=== PATIENT | male | born 1965 | race Caucasian/White ===

== ENCOUNTER 2017-01-19 02:27 | Emergency (ER) | payer BC ==
[2017-01-19] MEDS ORDERED: HYDROcodone/Acetaminophen 10/325 mg Tablet ONE (03:02)
== END 2017-01-19 03:08 | disposition home or self-care (01) ==
LOC: ERS 02:27
DX: K02.9 Dental caries, unspecified (principal); F17.210 Nicotine dependence, cigarettes, uncomplicated; Z79.899 Other long term (current) drug therapy
CPT/HCPCS: 99282

== ENCOUNTER 2017-05-18 01:33 | Emergency (ER) | payer BC | END 2017-05-18 02:40 | disposition left against medical advice (07) | LOC: ERS 01:33 | DX: Z53.21 Procedure and treatment not carried out due to patient leaving prior to being seen by health care provider (principal) | CPT/HCPCS: 93005 ==

== ENCOUNTER 2018-05-09 15:42 | Inpatient (IN) | payer BC, OTHER ==
[2018-05-09 16:26] LABS: #Lymphocytes 1.3 thou/uL (1.20-3.40); #Monocytes 0.9 thou/uL (0.11-0.59); #Neutrophils 11.1 thou/uL (1.40-6.50); %Basophils 0.2 % (0.0-1.0); %Eosinophils 0.2 % (0.0-10.0); %Lymphocytes 9.5 % (21.0-51.0); %Monocytes 6.5 % (0.0-10.0); %Neutrophils 83.7 % (42.0-75.0); Hemoglobin 14.6 g/dL (14.0-18.0); Mean Corpuscular HGB CONC 33.9 g/dL (32.0-36.0); Mean Corpuscular Hemoglobin 30.2 pg (27.0-31.0); Mean Corpuscular Volume 89.2 fL (78.0-98.0); Mean Platelet Volume 7.4 fL (7.4-10.4); Platelet Count 209 thou/uL (130-400); RBC Distribution Width 11.6 % (11.5-14.5); Red Blood Cell (RBC) Count 4.83 mill/uL (4.70-6.10); White Blood Cell (WBC) Count 13.3 thou/uL (4.8-10.8)
--- NOTE | 2018-05-09 16:42 | RAD ---
CHEST ONE VIEW 05/09/18 HISTORY: Fever and right upper quadrant pain. FINDINGS: Heart size is normal. The lungs are clear. No pneumonia, edema, pleural effusion or other acute proc ess. IMPRESSION: No acute intrathoracic disease. No evidence for pneumonia. POS: [facility]
[2018-05-09 16:48] LABS: ALT (SGPT) 18 U/L (8-55); AST (SGOT) 13 U/L (5-34); Alkaline Phosphatase 46 U/L (40-150); Anion Gap 13 mmol/L (10-20); BUN (Urea Nitrogen) 11 mg/dL (8.4-25.7); Bilirubin, Total 1.7 mg/dL (0.2-1.2); Calc. Creatinine Clearance 0 mL/min (70-130); Calcium 9.2 mg/dL (7.8-10.44); Carbon Dioxide 22 mmol/L (22-29); Chloride 103 mmol/L (98-107); Estimated GFR-MDRD 64; Globulin 2.9 g/dL (2.4-3.5); Glucose 137 mg/dL (70-105); Lipase 18 U/L (8-78); Potassium 3.6 mmol/L (3.5-5.1); Protein, Total 6.9 g/dL (6.0-8.3); Sodium 134 mmol/L (136-145)
--- NOTE | 2018-05-09 17:30 | ULT ---
GALLBLADDER ULTRASOUND: 05/09/18 HISTORY: Abdominal pain. Coarse increased liver echogenicity, evidence for fatty change. Evidence for sludge within the gallbl adder although the patient was not n.p.o. No evidence for gallstones or overt gallbladder wall thicke andrea or pericholecystic fluid. Common bile duct is not dilated. Visualized pancreas and right kidney are unremarkable. IMPRESSION: Coarse liver echogenicity. Sludge within the gallbladder without overt gallstones. If there is clinic al concern for acute cholecystitis, followup nuclear medicine hepatobiliary scan might give additiona l information. POS: [facility]
[2018-05-09 17:51] LABS: Bilirubin Negative (Negative); Blood, Urine Negative (Negative); Clarity CLEAR (Clear); Glucose, Urine (Dipstick) Negative (Negative); Leukocyte Negative (Negative); Nitrite Negative (Negative); Protein, Urine (Dipstick) Negative (Neg-Trace)
[2018-05-09] MEDS ORDERED: Ondansetron PF 4 MG/2 ML Vial ONE (19:45)
[2018-05-09] MEDS ORDERED: Morphine 4 MG/ML VIAL ONE (19:46)
--- NOTE | 2018-05-09 20:45 | PDOC.FPRHP ---
- History of Present Illness Chief Complaint: Abdominal pain History of Present Illness: 52yo M with no pmh presents as transfer from outside ED with 2 day hx of worsening abdominal pain in epigastric region with radiation to RUQ. Pain is of pressure like quality and rated 10/10. Pain was alleviated by toradol at outside ER but otherwise has no transforming factors including meal times. Related sympotms of SOB when pain is at its worse. Of note pt reports he had a similar episode of pain 1 year ago and was dx with gastric ulcer though he never had an EGD. ED Course: toradol, IVF, Tylenol, Zofran, morphine - Allergies/Adverse Reactions Allergies Allergy/AdvReac Type Severity Reaction Status Date / Time No Known Allergies Allergy Verified 04/02/16 19:39 - Home Medications Medication Instructions Recorded Confirmed Type Tamsulosin HCl [Flomax] 0.4 mg PO HS 03/29/16 05/09/18 History - History PMHx: Denies PSHx: bilateral shoulder, L5 laminectomy FHx: Father had hx of prostate cancer (pt states this is why he takes flomax) Social: snuff (1 can/week), etoh 6 beers/day, denies drugs - Review of Systems General: reports: fever/chills. denies: fatigue Eyes: denies: eye pain, vision changes ENT: denies: nasal congestion, rhinorrhea Respiratory: reports: shortness of breath. denies: cough Cardiovascular: denies: chest pain, palpitation, edema, orthopnea Gastrointestinal: reports: abdominal pain. denies: nausea, vomiting Genitourinary: denies: dysuria, polyuria Skin: denies: rashes, lesions Musculoskeletal: denies: pain, tenderness Neurological: denies: numbness, syncope, seizure Psychological: denies: anxiety, depression - Vital signs BP: [119/79] HR: [86] RR: [23] Tmax: [100.7] Pox: [97]% on [ra] Wt: [88kg] - Physical Exam Constitutional: awake, alert and oriented, well developed HEENT: normocephalic and atraumatic, EOMI, grossly normal vision, grossly normal hearing Neck: supple, trachea midline Chest: no-tender to palpation Heart: RRR, normal S1/S2 Lungs: CTAB, no respiratory distress Abdomen: soft, bowel sounds present -Abdomen: + antoine sign Musculoskeletal: normal structure, normal tone Neurological: no focal deficit, normal sensation Skin: no rash/lesions, good turgor Heme/Lymphatic: no purpura, no petechia Psychiatric: normal mood and affect, good judgment and insight FMR H&P: Results - Labs Result Diagrams: 05/10/18 06:51 05/10/18 06:51 Lab results: WBC 13.3 thou/uL (4.8-10.8) H 05/09/18 16:10 Hgb 14.6 g/dL (14.0-18.0) 05/09/18 16:10 Hct 43.1 % (42.0-52.0) 05/09/18 16:10 MCV 89.2 fL (78.0-98.0) 05/09/18 16:10 Plt Count 209 thou/uL (130-400) 05/09/18 16:10 Neutrophils % 83.7 % (42.0-75.0) H 05/09/18 16:10 Sodium 134 mmol/L (136-145) L 05/09/18 16:10 Potassium 3.6 mmol/L (3.5-5.1) 05/09/18 16:10 Chloride 103 mmol/L (98-107) 05/09/18 16:10 Carbon Dioxide 22 mmol/L (22-29) 05/09/18 16:10 BUN 11 mg/dL (8.4-25.7) 05/09/18 16:10 Creatinine 1.19 mg/dL (0.7-1.3) 05/09/18 16:10 Glucose 137 mg/dL (70-105) H 05/09/18 16:10 Lactic Acid 1.3 mmol/L (0.5-2.2) 05/09/18 16:10 Calcium 9.2 mg/dL (7.8-10.44) 05/09/18 16:10 Total Bilirubin 1.7 mg/dL (0.2-1.2) H 05/09/18 16:10 AST 13 U/L (5-34) 05/09/18 16:10 ALT 18 U/L (8-55) 05/09/18 16:10 Alkaline Phosphatase 46 U/L (40-150) 05/09/18 16:10 Serum Total Protein 6.9 g/dL (6.0-8.3) 05/09/18 16:10 Albumin 4.0 g/dL (3.5-5.0) 05/09/18 16:10 Lipase 18 U/L (8-78) 05/09/18 16:10 Urine Ketones Negative mg/dL (Negative) 05/09/18 17:29 Urine Blood Negative (Negative) 05/09/18 17:29 Urine Nitrite Negative (Negative) 05/09/18 17:29 Ur Leukocyte Esterase Negative (Negative) 05/09/18 17:29 FMR H&P: A/P - Plan Sepsis 2/2 possible acalculous cholecystitis A- Pt presents with fever, tachycardia, tachypnea, mild leukocytosis, and positive Antoine's sign. RUQ US showed GB sludge but no CBD dilation, wall thickening or gallstones noted. P- admit medical floor - BCx - start Zosyn - IVF and pain control - HIDA scan, consider surg consult pending results EtOH missuse disorder A- Pt admits to 6 pack beer/day and admits to plans for continued drinking on admission. No signs or symptoms of EtOH withdrawal at this time. P- Beer with meals. - ASE protocol - pt counselled on recommended Etoh intake limits FULL code PPx: Lovenox for VTE disposition: Admit to inpatient medical, expect at least 2 midnights FMR H&P: Upper Level - Pertinent history 52 yo CM with PMH EtOH abuse presenting with worsening abdominal pain, fever, and difficulty tolerating PO. Pt was seen at an outside urgent care and there was concern for cholecystitis so pt was sent to ER for further evaluation. Pt notes some improvement with toradol from urgent care. Pt states this type of pain occurred about a year ago and resolved on its own. - Pertinent findings Gen: pleasant in NAD CV: RRR Resp: unlabored, CTAB Abd: +BS, significant TTP RUQ, positive Antoine's, no distention/fluid wave/ rigidity - Plan Date/Time: 05/09/182044 I, Trevor Molina MD PGY3, have evaluated this patient and agree with findings/ plan as outlined by underwriting intern resident. Pertinent changes/additions are listed here. 1. Sepsis 2/2 possible acalculous cholecystitis -Pt presents with fever, tachycardia, tachypnea, mild leukocytosis, and positive Antoine's sign. RUQ US showed GB sludge but no CBD dilation, wall thickening or gallstones noted. -Will plan to admit to medical floor with continued IVF and pain control. Keep NPO. -Obtain blood cultures and start pt on Zosyn for cholecystitis coverage. -Plan on HIDA scan in AM with possible general surgery consult pending results. 2. EtOH Abuse -Pt admits to 6 pack beer/day. No signs or symptoms of EtOH withdrawal at this time but will place on ASE protocol and monitor closely. -Beer with meals. See underwriting intern H&P for complete medical history. FULL code PPx: Lovenox for VTE, no GI indicated. disposition: Admit to inpatient medical for anticipated length of stay greater than two midnights, pending clinical course. Addendum - Attending - Attending Attestation Date/Time: 05/09/18 9738 I personally evaluated the patient and discussed the management with Dr. Uribe. I agree with the History, Examination, Assessment and Plan documented above with any addition or exceptions noted below. Patient presents with epigastric and ruq abdominal pain for 2 days. U/s showed gallbladder sludge. will give iv fluids, IV zosyn. Hida scan tomorrow.
[2018-05-09] MEDS ORDERED: Morphine 4 MG/ML VIAL SLOW IVP PRN ×2 (21:17→21:21)
[2018-05-09] MEDS ORDERED: Ondansetron ODT 4 MG TAB SL PRN (21:17)
[2018-05-09] MEDS ORDERED: Sodium Chloride 0.9% 1,000 ML IV SCH (21:17)
[2018-05-09] MEDS ORDERED: Ondansetron PF 4 MG/2 ML Vial IVP PRN ×2 (21:17→21:21)
[2018-05-09] MEDS ORDERED: Acetaminophen 325 MG TAB PO PRN (21:21)
[2018-05-09] MEDS ORDERED: HYDROcodone/Acetaminophen 5/325 mg Tablet PO PRN (21:21)
[2018-05-09] MEDS ORDERED: Ondansetron ODT 4 MG TAB PO PRN (21:21)
[2018-05-09] MEDS ORDERED: Famotidine 20 MG TAB PO SCH (21:30)
[2018-05-09] MEDS: Ketorolac Tromethamine 30 MG/ML VIAL IVP PRN (22:36)
[2018-05-09] MEDS: Lactated Ringer's 1,000 ML IV SCH (22:41)
[2018-05-09] MEDS: Piperacillin/Tazobactam 3.375 GM in Sodium Chloride 0.9% 100 ML IVPB SCH (23:58)
[2018-05-10] MEDS: Lactated Ringer's 1,000 ML IV SCH ×3 (05:47→21:11)
[2018-05-10] MEDS: Piperacillin/Tazobactam 3.375 GM in Sodium Chloride 0.9% 100 ML IVPB SCH ×3 (05:47→17:26)
--- NOTE | 2018-05-10 06:46 | PDOC.FM ---
- Subjective Subjective: Mr. Sawyer says his RUQ pain has continued. Currently NPO. Denies nausea/ vomiting. Awaiting HIDA today. - Objective MAR Reviewed: Yes Vital Signs & Weight: Vital Signs (12 hours) Temp Pulse Resp BP BP BP Pulse Ox 05/10/18 04:00 99.9 F H 93 16 107/69 107/69 93 L 05/10/18 00:00 98.5 F 90 18 107/61 107/61 91 L 05/09/18 21:45 93 L 05/09/18 21:05 98.1 F 90 22 H 130/86 130/86 93 L Result Diagrams: 05/10/18 06:51 05/10/18 06:51 Phys Exam - Physical Examination Constitutional: NAD HEENT: sclera anicteric Respiratory: no rhonchi, clear to auscultation bilateral Cardiovascular: RRR, no significant murmur Gastrointestinal: soft, positive bowel sounds (RUQ TTP) Musculoskeletal: no edema Neurological: non-focal Psychiatric: normal affect Skin: normal turgor Dx/Plan (1) Sepsis Code(s): A41.9 - SEPSIS, UNSPECIFIED ORGANISM Status: Acute (2) Acalculous cholecystitis Code(s): K81.9 - CHOLECYSTITIS, UNSPECIFIED Status: Acute (3) Alcohol abuse Code(s): F10.10 - ALCOHOL ABUSE, UNCOMPLICATED Status: Acute (4) Hyperbilirubinemia Code(s): E80.6 - OTHER DISORDERS OF BILIRUBIN METABOLISM Status: Acute - Plan Plan: Sepsis 2/2 possible acalculous cholecystitis - Pt presents with fever, tachycardia, tachypnea, mild leukocytosis, and positive Antoine's sign. RUQ US showed GB sludge but no CBD dilation, wall thickening or gallstones noted. - BCx pending - continue Zosyn (05/09) - IVF and pain control - toradol, norco prn. - HIDA scan pending, consider surg consult pending results - T bili elevated 05/04 on admission, continue to trend with CMP Leukocytosis - improving, trend with CBC Hx of gastric ulcer - start protonix - continue toradol for now with caution EtOH missuse disorder A- Pt admits to 6 pack beer/day and admits to plans for continued drinking on admission. Will not give beer because of pt's symptoms. - ASE protocol - pt counselled on recommended Etoh intake limits FULL code PPx: Lovenox for VTE disposition: pending HIDA scan Addendum - Attending - Attending Attestation Date/Time: 05/10/18 3175 I personally evaluated the patient and discussed the management with Dr. Garcia. I agree with the History, Examination, Assessment and Plan documented above with any addition or exceptions noted below. Patient with continued ruq pain on palpation. Tbili still elevated but down- trending. Will get hida scan today. If positive, will consult surgery. If negative, will ask GI for evaluation as he has a reported history of gastric ulcer.
[2018-05-10 07:03] LABS: #Eosinphils 0.1 thou/uL (0.0-0.7); #Lymphocytes 1.6 thou/uL (1.20-3.40); #Neutrophils 8.9 thou/uL (1.40-6.50); %Basophils 0.2 % (0.0-1.0); %Eosinophils 0.6 % (0.0-10.0); %Lymphocytes 13.6 % (21.0-51.0); %Monocytes 8.4 % (0.0-10.0); %Neutrophils 77.2 % (42.0-75.0); Hemoglobin 12.3 g/dL (14.0-18.0); Mean Corpuscular HGB CONC 34.7 g/dL (32.0-36.0); Mean Corpuscular Hemoglobin 31.6 pg (27.0-31.0); Mean Corpuscular Volume 91.1 fL (78.0-98.0); Mean Platelet Volume 7.3 fL (7.4-10.4); Platelet Count 171 thou/uL (130-400); RBC Distribution Width 11.7 % (11.5-14.5); Red Blood Cell (RBC) Count 3.89 mill/uL (4.70-6.10); White Blood Cell (WBC) Count 11.5 thou/uL (4.8-10.8)
[2018-05-10 07:22] LABS: Anion Gap 10 mmol/L (10-20); BUN (Urea Nitrogen) 12 mg/dL (8.4-25.7); Calc. Creatinine Clearance 0 mL/min (70-130); Calcium 8.1 mg/dL (7.8-10.44); Carbon Dioxide 20 mmol/L (22-29); Chloride 108 mmol/L (98-107); Estimated GFR-MDRD 76; Glucose 84 mg/dL (70-105); Potassium 4.2 mmol/L (3.5-5.1); Sodium 134 mmol/L (136-145)
[2018-05-10 07:33] VITALS: BMI 32.4
[2018-05-10] MEDS ORDERED: BEER 1 CAN PO SCH (08:00)
[2018-05-10] MEDS: Enoxaparin Sodium 40 MG/0.4 ML SYRINGE SC SCH (08:09)
[2018-05-10] MEDS: Ketorolac Tromethamine 30 MG/ML VIAL IVP PRN ×2 (08:42→16:12)
[2018-05-10] MEDS ORDERED: Famotidine 20 MG TAB PO SCH (09:00)
[2018-05-10 10:07] LABS: Bilirubin, Total 1.4 mg/dL (0.2-1.2)
[2018-05-10] MEDS: Pantoprazole 40 MG VIAL IVP SCH (10:26)
[2018-05-10] MEDS ORDERED: Morphine 2 MG/ML SYRINGE SLOW IVP SCH (15:00)
[2018-05-10] MEDS ORDERED: Acetaminophen 1,000 MG in Premix Bag 1 BAG IVPB PRN (17:22)
--- NOTE | 2018-05-10 17:34 | NM ---
HEPOBILIARY SCAN: Date: 05-10-18 History: 52-year-old male with abnormal gallbladder ultrasound on 05-09-18 demonstrating gallbladder s ludge in a positive Antoine's sign. Technique: Patient was given 8 oz. of Ensure orally 4 hours prior to imaging to stimulate gallbladder emptying. Then, 5 mCi Technetium 99M labelled mebrofenin injected intravenously and imaging was obta ined over 60 minutes. As the gallbladder was not seen after 60 minutes, 2 mg of IV Morphine was admin istered. Then, a 90 minute delayed image was provided. FINDINGS: There is prominent radiotracer activity within the liver on post injecting imaging. Small bowel and b iliary activity is seen by approximately 15 minutes. Gallbladder activity is not seen by 60 minutes. In addition, following injection of Morphine and delayed imaging, the gallbladder is not visualized. IMPRESSION: Gallbladder is not visualized on this examination despite administration of morphine and delayed imag ing. Findings suggest occlusion of the cystic duct, concerning for acute cholecystitis. POS: [facility]
[2018-05-10] MEDS: Acetaminophen 325 MG TAB PO PRN (18:10)
[2018-05-10] MEDS: Tamsulosin HCl 0.4 MG CAP PO SCH (21:03)
[2018-05-11] MEDS: Piperacillin/Tazobactam 3.375 GM in Sodium Chloride 0.9% 100 ML IVPB SCH ×3 (00:06→11:23)
[2018-05-11] MEDS: Acetaminophen 325 MG TAB PO PRN (00:15)
[2018-05-11] MEDS: Lactated Ringer's 1,000 ML IV SCH ×2 (03:25→13:45)
[2018-05-11 06:52] LABS: #Eosinphils 0.2 thou/uL (0.0-0.7); #Lymphocytes 1.6 thou/uL (1.20-3.40); #Monocytes 0.8 thou/uL (0.11-0.59); #Neutrophils 7.6 thou/uL (1.40-6.50); %Basophils 0.2 % (0.0-1.0); %Eosinophils 1.5 % (0.0-10.0); %Lymphocytes 15.8 % (21.0-51.0); %Monocytes 7.8 % (0.0-10.0); %Neutrophils 74.8 % (42.0-75.0); Hemoglobin 11.9 g/dL (14.0-18.0); Mean Corpuscular HGB CONC 34.7 g/dL (32.0-36.0); Mean Corpuscular Hemoglobin 31.7 pg (27.0-31.0); Mean Corpuscular Volume 91.3 fL (78.0-98.0); Mean Platelet Volume 7.8 fL (7.4-10.4); Platelet Count 163 thou/uL (130-400); RBC Distribution Width 11.4 % (11.5-14.5); Red Blood Cell (RBC) Count 3.75 mill/uL (4.70-6.10); White Blood Cell (WBC) Count 10.1 thou/uL (4.8-10.8)
[2018-05-11 07:10] LABS: ALT (SGPT) 14 U/L (8-55); AST (SGOT) 13 U/L (5-34); Albumin 3.2 g/dL (3.5-5.0); Alkaline Phosphatase 43 U/L (40-150); Anion Gap 12 mmol/L (10-20); BUN (Urea Nitrogen) 9 mg/dL (8.4-25.7); Bilirubin, Total 0.9 mg/dL (0.2-1.2); Calc. Creatinine Clearance 106 mL/min (70-130); Calcium 8.5 mg/dL (7.8-10.44); Carbon Dioxide 19 mmol/L (22-29); Chloride 108 mmol/L (98-107); Estimated GFR-MDRD 77; Globulin 2.5 g/dL (2.4-3.5); Glucose 92 mg/dL (70-105); Potassium 4.1 mmol/L (3.5-5.1); Protein, Total 5.7 g/dL (6.0-8.3); Sodium 135 mmol/L (136-145)
[2018-05-11] MEDS: Pantoprazole 40 MG VIAL IVP SCH (07:46)
[2018-05-11] MEDS: Ketorolac Tromethamine 30 MG/ML VIAL IVP PRN (07:46)
--- NOTE | 2018-05-11 07:57 | PDOC.FM ---
- Subjective Subjective: NAEO. Denies fevers, chills. Improved RUQ pain. Denies tremors, auditory or visual hallucinations - Objective MAR Reviewed: Yes Vital Signs & Weight: Vital Signs (12 hours) Temp Pulse Resp BP BP BP Pulse Ox 05/11/18 03:30 98.7 F 69 16 110/74 110/74 93 L 05/11/18 00:00 99.1 F 87 18 119/75 119/75 95 05/10/18 20:00 98.6 F 72 20 103/67 103/67 93 L Weight Weight 88.496 kg I&O: 05/09/18 05/10/18 05/11/18 06:59 06:59 06:59 Intake Total 1365 Balance 1365 Result Diagrams: 05/11/18 06:18 05/11/18 06:18 Phys Exam - Physical Examination Constitutional: NAD HEENT: moist MMs Respiratory: no wheezing, clear to auscultation bilateral Cardiovascular: RRR, no significant murmur Gastrointestinal: soft, no distention, positive bowel sounds +murphys, no rebound or guarding in other areas Neurological: non-focal, moves all 4 limbs Psychiatric: normal affect, A&O x 3 Dx/Plan (1) Acalculous cholecystitis Code(s): K81.9 - CHOLECYSTITIS, UNSPECIFIED Status: Acute (2) Alcohol abuse Code(s): F10.10 - ALCOHOL ABUSE, UNCOMPLICATED Status: Chronic (3) Hyperbilirubinemia Code(s): E80.6 - OTHER DISORDERS OF BILIRUBIN METABOLISM Status: Acute (4) S/P laminectomy Code(s): Z98.890 - OTHER SPECIFIED POSTPROCEDURAL STATES Status: Acute (5) Sepsis Code(s): A41.9 - SEPSIS, UNSPECIFIED ORGANISM Status: Resolved - Plan Plan: Acute cholecystitis - HIDA scan shows highly likely for acute cholecystitis - General surgery consulted, Dr. Fox on board - Stable, No SIRS criteria met - BCx pending - continue Zosyn (05/09) - IVF and pain control - toradol, norco prn. - T bili elevated WNL today Hx of gastric ulcer - start protonix - continue toradol for now with caution, will also monitor renal function EtOH missuse disorder A- Pt admits to 6 pack beer/day and admits to plans for continued drinking on admission. Will not give beer because of pt's symptoms. - ASE protocol - pt counselled on recommended Etoh intake limits FULL code PPx: Lovenox for VTE disposition: pending Dr. Fox recs discussed with dr. otero Addendum - Attending - Attending Attestation Date/Time: 05/11/18 6874 I personally evaluated the patient and discussed the management with Dr. Diaz I agree with the History, Examination, Assessment and Plan documented above with any addition or exceptions noted below.Hida scan suggest acute cholecystitis Patient to OR this AM for cholecystectomy and indicated procedures.
[2018-05-11] MEDS ORDERED: Bupivacaine/Epinephrine 0.25% 30 ML VIAL ONE (10:15)
[2018-05-11] MEDS: Enoxaparin Sodium 40 MG/0.4 ML SYRINGE SC SCH (10:21)
[2018-05-11] MEDS ORDERED: Fentanyl 100 MCG/2 ML VIAL ONE (10:31)
[2018-05-11] MEDS ORDERED: SUGAMMADEX SODIUM 200 MG/2 ML VIAL ONE (12:37)
[2018-05-11] MEDS ORDERED: traMADol HCl 50 MG TAB PO PRN (12:51)
[2018-05-11] MEDS ORDERED: Ibuprofen 800 MG TAB PO PRN (12:51)
[2018-05-11] MEDS ORDERED: Promethazine HCl 25 MG/ML VIAL SLOW IVP PRN (12:52)
[2018-05-11] MEDS ORDERED: Ketorolac Tromethamine 30 MG/ML VIAL IVP PRN (12:52)
[2018-05-11] MEDS ORDERED: Promethazine HCl 25 MG/ML VIAL IM PRN (12:52)
[2018-05-11] MEDS ORDERED: Meperidine HCl/PF 25 MG/ML VIAL SLOW IVP PRN (12:52)
[2018-05-11] MEDS ORDERED: Ondansetron HCl/PF 4 MG/2 ML Vial IVP PRN (12:52)
[2018-05-11] MEDS: Acetaminophen 500 MG TAB PO SCH ×2 (13:50→20:21)
--- NOTE | 2018-05-11 13:50 | OP ---
DATE OF PROCEDURE: 05/11/2018 PREOPERATIVE DIAGNOSIS: Acute cholecystitis. POSTOPERATIVE DIAGNOSIS: Acute on chronic cholecystitis. OPERATIONS PERFORMED: Laparoscopic cholecystectomy. ANESTHESIA: General endotracheal. ESTIMATED BLOOD LOSS: 20 mL. FLUIDS GIVEN: 800 mL crystalloids. COUNTS: Sponge and instrument counts were verified as correct x2. COMPLICATIONS: None apparent. INDICATIONS FOR OPERATION: A 52-year-old man, presented with recurrent epigastric right upper quadrant abdominal pain. Clinical and radiographic examination were consistent with acute cholecystitis, for which the patient was brought to the operating room for cholecystectomy. Findings are consistent with a markedly dilated gallbladder in the usual anatomic location completely encased by omental adhesions. Upon opening of the gallbladder, clear white bile was evacuated. DESCRIPTION OF OPERATION: Informed consent obtained from the patient, who was brought to the operating room and placed in supine position. Following general endotracheal anesthesia, abdomen was sterilely prepped and draped in the usual fashion. The skin below the umbilicus was infiltrated with 0.25% Marcaine with epinephrine. A small curvilinear infraumbilical incision was made using 11 scalpel. The umbilical stalk grasped with Arnold and elevated. Veress needle was inserted through the incision, placed in the peritoneal cavity through which the abdomen was insufflated with 3 L of CO2 gas. Intraabdominal pressure was noted at 2 mmHg. Following abdominal insufflation, Veress needle was removed and a 5 mm trocar introduced using a Visiport under laparoscopy. Laparoscopy confirmed proper placement of the port. No injuries to underlying structures. Additional laparoscopy reveals gallbladder in the usual anatomic location completely encased by omental adhesions. Under direct laparoscopy, a 12 mm epigastric and two 5-mm right lateral subcostal ports were placed after the overlying skin were infiltrated with 0.25% Marcaine with epinephrine. Appropriate incision was made. The patient was placed in a reverse Trendelenburg position, rotated to his left. I introduced a [place] dissector with cautery through the epigastric port site, using this to take down omental adhesions to expose the fundus of the gallbladder. I introduced a Prestige grasper through the right lateral subcostal port, attempted to grasp the fundus of the gallbladder, which was markedly distended and tense. I decided to decompress the gallbladder. To accomplish this, I used an Endo-suction catheter with cautery to create a cholecystotomy at the fundus of the gallbladder, evacuating excess white bile. The Prestige grasper was then applied to the fundus of the gallbladder, which was elevated cephalad. Omental adhesions were then dissected free from the remainder of the gallbladder. Second prestige grasper introduced through right medial subcostal port grasping the Mayelin's pouch, which was retracted laterally. The cystic duct was carefully dissected free from surrounding structures at the triangle of Calot. The duct was divided between clips applying two clips proximally and one clip at the junction of the cystic duct and gallbladder. Cystic artery was dissected free of surrounding structures and divided between clips in a similar fashion. Near necrotic gallbladder was removed from the liver bed using cautery. Gallbladder delivered of the abdominal cavity using an EndoCatch. Operative site was inspected. There was venous oozing in the gallbladder fossa. Hemostasis was readily achieved using Arixtra. Finding no other pathology, laparoscopy was terminated. Fascia of the epigastric port was closed using 0 Vicryl suture and EndoClose device on the laparoscopy. The abdomen was desufflated. All ports and instruments were removed and accounted. Skin incisions were closed using 4-0 Monocryl suture in subcuticular fashion. Dermabond was applied over incisional closure. The patient tolerated the operation without any apparent complication and was returned to recovery room in satisfactory condition. Job ID: [id number]
[2018-05-11] MEDS ORDERED: Acetaminophen 325 MG TAB PO SCH (14:00)
[2018-05-11] MEDS: traMADol HCl 50 MG TAB PO PRN ×2 (14:39→20:58)
[2018-05-11] MEDS ORDERED: PROPOFOL 200 MG/20 ML VIAL ONE (16:33)
[2018-05-11] MEDS ORDERED: ePHEDrine/0.9% NaCl/PF SYRINGE 50 mg/10 ml ONE (16:33)
[2018-05-11] MEDS ORDERED: Rocuronium Bromide 10 MG/ML (10ML VIAL) ONE (16:33)
[2018-05-11] MEDS ORDERED: Glycopyrrolate 0.2 MG/ML 5 ML SYRINGE ONE (16:33)
[2018-05-11] MEDS ORDERED: PHENYLEPHRINE-NS 100 MCG/ML 10 ML SYRINGE ONE (16:33)
[2018-05-11] MEDS ORDERED: Lidocaine 1% PF 5 ML VIAL ONE (16:33)
[2018-05-11] MEDS ORDERED: Senokot 8.6 MG TAB PO SCH (17:00)
[2018-05-11] MEDS ORDERED: Senokot 8.6 MG TAB PO PRN (17:00)
[2018-05-11] MEDS ORDERED: Ketorolac Tromethamine 30 MG/ML VIAL IVP SCH ×2 (17:45→18:15)
--- NOTE | 2018-05-11 18:33 | CON ---
DATE OF CONSULTATION: 05/11/2018 REQUESTING PHYSICIAN: Claudette Diaz MD HISTORY: A 52-year-old man presented with recurrent epigastric right upper quadrant abdominal pain. The pain at this time was rated at 10/10, associated with abdominal bloating and flatulence. The patient also endorses fever, maximum temperature of 101 degrees within the last 36 hours as well as chills. He denies any diarrhea. PAST MEDICAL HISTORY: Pertinent for benign prostatic hypertrophy. PAST SURGICAL HISTORY: Significant for bilateral shoulder arthroplasties as well as L5 laminectomy. SOCIAL HISTORY: The patient is , lives at home with his . He is employed as a light truck driver. He admits to dip and snuff. He has a very remote history of cigarette smoking less than 5 pack years. Has not smoked since his 20s. He drinks 6 beers daily. He denies any illicit drug abuse. FAMILY HISTORY: Significant for father with prostatic carcinoma and paternal grandfather with diabetes mellitus. He denies any family history of heart disease. PREHOSPITALIZATION MEDICATION: Includes Flomax 0.4 mg p.o. at bedtime. ALLERGIES: THE PATIENT DENIES ANY KNOWN DRUG ALLERGIES. REVIEW OF SYSTEMS: Ten-point review of system is essentially unremarkable except as stated in past medical history and chief complaint. PHYSICAL EXAMINATION: GENERAL: Reveals a 52-year-old normally developed man, otherwise coherent, interactive, appears stated age. The patient is alert and oriented x3, appears to be in no acute distress at time of my evaluation. VITAL SIGNS: Include blood pressure 120/77, pulse 66, respiratory rate is 18, temperature 98.6 degrees Fahrenheit, and oxygen saturation 95% on room air. HEENT: Reveals normocephalic and atraumatic. Pupils equal, round, and reactive to light and accommodation. Extraocular muscles are intact bilaterally. No sclerae icterus is present. Oral mucosa is pink and moist. No lesions are noted. NECK: Supple. No palpable lymphadenopathy or thyromegaly present. HEART: Reveals regular rate and rhythm. No murmurs or gallops auscultated. LUNGS: Clear to auscultation bilaterally. Breathing, regular and unlabored. ABDOMEN: Soft and moderately distended. EXTREMITIES: He has right upper quadrant tenderness to palpation. Liver and spleen, nonpalpable below costal margin. EXTREMITIES: Reveal 2+ radial and pedal pulses bilaterally. No ankle edema is present. NEUROLOGIC: Reveals no focal deficits present. PERTINENT LABORATORY FINDINGS: Include CBC, which on admission 05/09/2018 was noted with 13,300 white blood cells, hemoglobin and hematocrit of 14.6 and 43.1 respectively. Platelet count 209,000. Today, CBC is 10,100 white blood cells, hemoglobin and hematocrit remained stable at 11.9 and 34.2 respectively. Platelet count 163,000. Metabolic profile today; sodium 135, potassium 4.1, chloride is 108, bicarb 19, BUN 9, creatinine is 1.01, glucose 92. AST and ALT normal at 13 and 14 respectively. Serum lipase on admission was normal at 18. I have personally reviewed the abdominal ultrasound obtained on this admission 05/09/2018, which reveals biliary sludge and thickened gallbladder wall. No gallstones noted. Common bile duct is normal for this patient's age at 4.3 mm in diameter. I have also reviewed the HIDA scan, which was obtained yesterday, where the gallbladder is not visualized. There is no evidence of common bile ductal obstruction. IMPRESSION: Acute cholecystitis. RECOMMENDATIONS: Laparoscopic cholecystectomy. I have advised the patient of the above findings and recommendations. I have also advised him of the risks and benefits of proposed surgery to include, but not limited to bleeding, infection, injury to bile duct or surrounding structures. This information was given to the patient in the presence of his at bedside. They both indicated understanding information given. I have answered their questions. The patient is going to consent for surgical intervention. Thank you again, Dr. Diaz, for allowing me the opportunity to participate in the care of this patient. Job ID: [id number]
[2018-05-11] MEDS: Amoxicillin/Potassium Clav 875 MG TAB PO SCH (20:21)
[2018-05-11] MEDS: Tamsulosin HCl 0.4 MG CAP PO SCH (20:21)
[2018-05-12] MEDS: Acetaminophen 500 MG TAB PO SCH ×3 (02:07→14:24)
[2018-05-12] MEDS: Lactated Ringer's 1,000 ML IV SCH ×2 (02:12→11:02)
[2018-05-12] MEDS: traMADol HCl 50 MG TAB PO PRN (05:44)
[2018-05-12 06:52] LABS: #Eosinphils 0.2 thou/uL (0.0-0.7); #Lymphocytes 1.2 thou/uL (1.20-3.40); #Monocytes 0.7 thou/uL (0.11-0.59); #Neutrophils 4.7 thou/uL (1.40-6.50); %Basophils 0.3 % (0.0-1.0); %Eosinophils 3.4 % (0.0-10.0); %Lymphocytes 17.5 % (21.0-51.0); %Neutrophils 68.8 % (42.0-75.0); Hemoglobin 10.7 g/dL (14.0-18.0); Mean Corpuscular HGB CONC 34.5 g/dL (32.0-36.0); Mean Corpuscular Hemoglobin 31.2 pg (27.0-31.0); Mean Corpuscular Volume 90.5 fL (78.0-98.0); Mean Platelet Volume 7.4 fL (7.4-10.4); Platelet Count 188 thou/uL (130-400); RBC Distribution Width 11.4 % (11.5-14.5); Red Blood Cell (RBC) Count 3.42 mill/uL (4.70-6.10); White Blood Cell (WBC) Count 6.9 thou/uL (4.8-10.8)
--- NOTE | 2018-05-12 06:53 | PDOC.FM ---
- Subjective Subjective: reports no improvement in pain overnight. passing gas, tolerating diet. no BM but urinating and has been walking around. - Objective MAR Reviewed: Yes Vital Signs & Weight: Vital Signs (12 hours) Temp Pulse Resp BP BP Pulse Ox 05/12/18 04:00 98.4 F 83 16 100/62 100/62 92 L 05/12/18 00:00 98.7 F 83 18 98/61 98/61 91 L 05/11/18 20:00 98.3 F 87 18 109/69 109/68 92 L Weight Weight 88.496 kg I&O: 05/10/18 05/11/18 05/12/18 06:59 06:59 06:59 Intake Total 1365 3370 Balance 1365 3370 Result Diagrams: 05/12/18 06:41 05/12/18 06:41 Phys Exam - Physical Examination Constitutional: NAD HEENT: moist MMs Neck: full ROM Cardiovascular: RRR, no significant murmur Gastrointestinal: soft, positive bowel sounds tender at surgical site Dx/Plan (1) Acalculous cholecystitis Code(s): K81.9 - CHOLECYSTITIS, UNSPECIFIED Status: Resolved (2) Alcohol abuse Code(s): F10.10 - ALCOHOL ABUSE, UNCOMPLICATED Status: Chronic (3) Hyperbilirubinemia Code(s): E80.6 - OTHER DISORDERS OF BILIRUBIN METABOLISM Status: Acute (4) S/P laminectomy Code(s): Z98.890 - OTHER SPECIFIED POSTPROCEDURAL STATES Status: Acute (5) Sepsis Code(s): A41.9 - SEPSIS, UNSPECIFIED ORGANISM Status: Resolved - Plan Plan: Acute cholecystitis s/p lap reggie, POD 1 - HIDA scan shows highly likely for acute cholecystitis - s/p lap reggie on 05/11 - BCx pending - continue augmentin 5day home course per Dr. Fox - Adv diet as tolerated - Pain control with tylenol and tramadol - norco x1 Constipation -continue senekot, will try mg citrate Hx of gastric ulcer - start protonix - d/c toradol Alcohol abuse - Pt admits to 6 pack beer/day and admits to plans for continued drinking on admission. Will not give beer because of pt's symptoms. - ASE protocol - pt counselled on recommended Etoh intake limits FULL code PPx: Lovenox for VTE disposition: Pain control. D/c home today. discussed with dr. otero Addendum - Attending - Attending Attestation Date/Time: 05/12/18 7888 I personally evaluated the patient and discussed the management with Dr. Diaz I agree with the History, Examination, Assessment and Plan documented above with any addition or exceptions noted below. POD #1 afebrile VSS abdomen BS positive wound clean still with RUQ pain will increase activity and laxative today.
[2018-05-12 07:05] LABS: ALT (SGPT) 29 U/L (8-55); AST (SGOT) 30 U/L (5-34); Alkaline Phosphatase 33 U/L (40-150); Anion Gap 11 mmol/L (10-20); BUN (Urea Nitrogen) 8 mg/dL (8.4-25.7); Bilirubin, Total 0.8 mg/dL (0.2-1.2); Calc. Creatinine Clearance 126 mL/min (70-130); Calcium 8.3 mg/dL (7.8-10.44); Carbon Dioxide 21 mmol/L (22-29); Chloride 105 mmol/L (98-107); Estimated GFR-MDRD Greater than 90; Globulin 2.7 g/dL (2.4-3.5); Glucose 99 mg/dL (70-105); Potassium 3.9 mmol/L (3.5-5.1); Protein, Total 5.7 g/dL (6.0-8.3); Sodium 133 mmol/L (136-145)
[2018-05-12] MEDS: Amoxicillin/Potassium Clav 875 MG TAB PO SCH (08:04)
[2018-05-12] MEDS: Pantoprazole 40 MG VIAL IVP SCH (08:05)
[2018-05-12] MEDS: Enoxaparin Sodium 40 MG/0.4 ML SYRINGE SC SCH (08:05)
[2018-05-12] MEDS: HYDROcodone/Acetaminophen 5/325 mg Tablet PO PRN ×2 (09:56→14:19)
[2018-05-12] MEDS ORDERED: Magnesium Citrate 300 ML BOT PO SCH (11:00)
--- NOTE | 2018-05-12 14:10 | PRG ---
DATE OF SERVICE: 05/12/2018 SUBJECTIVE: This is a 52-year-old male, who is postop day 1, status post lap reggie with Dr. Fox. The patient reports that his pain was not well controlled overnight. His primary team has added [place] p.r.n. to his pain regimen. He has not yet received this. Upon my evaluation, he has chief complaint of right upper quadrant abdominal pain. He reports poor p.o. intake secondary to pain. OBJECTIVE: VITAL SIGNS: Temperature 97.8, pulse 76, respirations 20, O2 saturation 93% to 95% on 2 L nasal cannula. Blood pressure 115/79. GENERAL: Resting in bed, in no acute distress. PULMONARY: Normal work of breathing. Symmetric rise. CARDIOVASCULAR: Regular rate and rhythm. GI: Laparoscopic sites are clean, dry, and intact. Bowel sounds are positive. Abdomen is rotund and mildly firm. No signs of peritonitis, guarding, or rigidity. MUSCULOSKELETAL: Moves all extremities x4. NEUROLOGIC: No focal deficit is noted. LABORATORY FINDINGS: WBC 6.9, hemoglobin 10.7, hematocrit 30.9, and platelet count 188. Sodium 133, potassium 3.9, chloride 105, carbon dioxide 21, BUN 8, creatinine 0.85. T bilirubin 0.8, AST 30, ALT 29, alkaline phosphatase 33. ASSESSMENT: 1. Right upper quadrant pain. 2. Postoperative day 1, status post laparoscopic cholecystectomy. 3. Acute on chronic cholecystitis. 4. Daily alcohol use. PLAN: Continue to encourage incentive spirometry and pulmonary toileting. Continue to encourage mobility. Pain regimen as ordered. The patient states that he has taken Ultram in the past and it does not help for pain. I am hopeful that the addition of [place] p.r.n. will control the patient's pain. He endorses passing flatus this morning and states that he has good bladder function. Once the patient's pain is controlled and he is tolerating p.o. intake, the patient will be a candidate for discharge per primary team. The patient will need 2-week followup with Dr. Fox, status post discharge. Continue Augmentin total of 5 days. Plan of care was discussed with the patient and family at bedside and all questions were answered at the time of this dictation. The patient was discussed with Trauma attending. Job ID: [id number]
[2018-05-12 16:17] VITALS: BP 108/64; TEMP 97.9
--- NOTE | 2018-05-13 09:33 | DIS ---
DATE OF ADMISSION: 05/09/2018 DATE OF DISCHARGE: 05/12/2018 RESIDENT: Claudette Diaz MD, PGY-1. ADMITTING ATTENDING: Elke Gaines MD. DISCHARGE ATTENDING: Regino Hill MD. CONSULT: General surgery, Jv Fox DO. PROCEDURE: Laparoscopic cholecystectomy. PRIMARY DIAGNOSIS: Acute cholecystitis status post laparoscopic cholecystectomy. SECONDARY DIAGNOSES: 1. ETOH abuse. 2. Potential history of gastric ulcer. 3. Resolved sepsis. 4. Constipation. DISCHARGE MEDICATIONS: 1. Flomax 0.4 mg p.o. at bedtime. 2. Augmentin 875 mg p.o. q.12 hours to complete a 5-day course. 3. [place] 5/325 one tab p.o. q.4 hours p.r.n. for pain. 4. Motrin 800 mg p.o. q.8 hours p.r.n. for pain. 5. Senokot one tab p.o. at bedtime p.r.n. for constipation. 6. Ultram 100 mg p.o. q.6 hours p.r.n. for pain. DISCONTINUED MEDICATIONS: None. HISTORY OF PRESENT ILLNESS/HOSPITAL COURSE: This is a 52-year-old male who came in with acute right upper quadrant abdominal pain. He was seen at Urgent Care and was worked up for suspected cholecystits. The patient was admitted to our service for sepsis secondary to presumed acute cholecystitis with pertinent labs for elevated Tbili. He was started on empiric Zosyn. HIDA scan confirmed acute cholecystitis and patient underwent removal with cholecystectomy with Dr. Jv Fox. Postop course was uncomplicated and pain control was successfully achieved. In addition, the patient experienced acute constipation likely secondary to decreased ambulation, decreased p.o. tolerance, and recent surgery. He was started on a bowel regimen and sent home with encouragement to continue ambulation and take bowel regimen in order to help him have a bowel movement. DISCHARGE INSTRUCTIONS: 1. Location: Home. 2. Diet: As tolerated. 3. Activity: As tolerated. 4. Followup: Please follow up with PCP, Dr. Garvin in 7-10 days. Please follow up with Dr. Jv Fox in two weeks. Please continue to take antibiotic regimen as directed by Dr. Fox. Job ID: [id number] [facility]
== END 2018-05-12 16:20 | disposition home or self-care (01) | DRG 854 ==
LOC: ERS 15:42 → T4-B 20:00
PROVIDERS: ADMIT Family Medicine; ATTEND Family Medicine
PROC: 0FT44ZZ Resection of Gallbladder, Percutaneous Endoscopic Approach (ICD-10-PCS; principal; 2018-05-11)
DX: A41.9 Sepsis, unspecified organism (principal); K81.0 Acute cholecystitis; K81.1 Chronic cholecystitis; F10.10 Alcohol abuse, uncomplicated; N40.0 Benign prostatic hyperplasia without lower urinary tract symptoms; E80.6 Other disorders of bilirubin metabolism; K59.00 Constipation, unspecified; Z96.611 Presence of right artificial shoulder joint; Z96.612 Presence of left artificial shoulder joint; Z98.890 Other specified postprocedural states; Z87.891 Personal history of nicotine dependence; Z87.19 Personal history of other diseases of the digestive system
CPT/HCPCS: 36415; 71045; 76705; 78227; 80048; 80053; 81003; 82247; 83605; 83690; 84450; 84460; 84484; 85025; 87040; 87804; 88304; 93005; 96361; 96374; 96375; A9537; C9113; J0131; J1650; J1885; J2001; J2270; J2405; J2543; J2704; J3010; J7050

== ENCOUNTER 2024-01-19 14:54 | Emergency (ER) | payer SELFPAY ==
[2024-01-19 15:44] LABS: #Basophils 0.05 10x3/uL (0.0-0.2); %Basophils 0.5 % (0.0-1.0); %Eosinophils 0.9 % (0.0-10.0); %Lymphocytes 17.7 % (21.0-51.0); %Monocytes 6.8 % (0.0-10.0); %Neutrophils 73.7 % (42.0-75.0); Hematocrit 35.1 % (42.0-52.0); Hemoglobin 11.7 g/dL (14.0-18.0); Mean Corpuscular HGB CONC 33.3 g/dL (32.0-36.0); Mean Corpuscular Hemoglobin 28.4 pg (27.0-31.0); Mean Corpuscular Volume 85.2 fL (78.0-98.0); Mean Platelet Volume 8.9 fL (7.4-10.4); Platelet Count 488 10x3/uL (130-400); RBC Distribution Width 12.6 % (11.5-14.5); Red Blood Cell (RBC) Count 4.12 mill/uL (4.70-6.10)
[2024-01-19 16:02] LABS: ALT (SGPT) 15 U/L (8-55); AST (SGOT) 15 U/L (5-34); Albumin 3.3 g/dL (3.5-5.0); Alkaline Phosphatase 65 U/L (40-110); Anion Gap 14 mmol/L (10-20); BUN (Urea Nitrogen) 10 mg/dL (8.4-25.7); Bilirubin, Total 0.9 mg/dL (0.2-1.2); Calc. Creatinine Clearance 0 mL/min (70-130); Calcium 10.2 mg/dL (7.8-10.44); Carbon Dioxide 21 mmol/L (22-29); Chloride 106 mmol/L (98-107); Estimated GFR 86; Globulin 4.6 g/dL (2.4-3.5); Glucose 99 mg/dL (70-105); Lipase 25 U/L (8-78); Potassium 3.5 mmol/L (3.5-5.1); Protein, Total 7.9 g/dL (6.0-8.3); Sodium 137 mmol/L (136-145)
== END 2024-01-19 17:21 | disposition left against medical advice (07) ==
LOC: ERS 14:54
DX: Z53.21 Procedure and treatment not carried out due to patient leaving prior to being seen by health care provider (principal)
CPT/HCPCS: 36415; 76870; 80053; 83605; 83690; 85025; 93976

== ENCOUNTER 2024-01-21 12:59 | Inpatient (IN) | payer OTHER, SELFPAY ==
[~2024-01-21 12:59] MED LIST: Iopamidol-370 76% 500 ML MDV (1 ML CHARGE) ONE
[2024-01-21 14:04] LABS: Hematocrit 29.7 % (42.0-52.0); Hemoglobin 10.3 g/dL (14.0-18.0); Mean Corpuscular HGB CONC 34.7 g/dL (32.0-36.0); Mean Corpuscular Hemoglobin 28.9 pg (27.0-31.0); Mean Corpuscular Volume 83.2 fL (78.0-98.0); Mean Platelet Volume 9.1 fL (7.4-10.4); Platelet Count 362 10x3/uL (130-400); RBC Distribution Width 12.8 % (11.5-14.5); Red Blood Cell (RBC) Count 3.57 mill/uL (4.70-6.10)
[2024-01-21 14:15] LABS: ALT (SGPT) 20 U/L (8-55); AST (SGOT) 25 U/L (5-34); Albumin 2.7 g/dL (3.5-5.0); Alkaline Phosphatase 96 U/L (40-110); Anion Gap 16 mmol/L (10-20); BUN (Urea Nitrogen) 14 mg/dL (8.4-25.7); Bilirubin, Total 1.1 mg/dL (0.2-1.2); Calc. Creatinine Clearance 0 mL/min (70-130); Calcium 9.1 mg/dL (7.8-10.44); Carbon Dioxide 17 mmol/L (22-29); Chloride 105 mmol/L (98-107); Estimated GFR 100; Glucose 102 mg/dL (70-105); Potassium 3.2 mmol/L (3.5-5.1); Protein, Total 6.7 g/dL (6.0-8.3); Sodium 135 mmol/L (136-145)
[2024-01-21 14:25] LABS: Band 25 % (5-11); Eosinophils 1 % (0-10); Large Platelets 9.8 % (0-5); Lymphocytes 9 % (21-51); Neutrophil 64 % (42-75); Nucleated RBC (Manual Ct) 2 % (0); Platelet Adequacy Comment Platelets Normal; Polychromasia SLIGHT = 2-3 cells HPF (0-2); Reactive Lymphocytes 2 % (0-10)
[2024-01-21] MEDS ORDERED: Ondansetron ODT 4 MG TAB PO PRN ×2 (15:50→22:21)
[2024-01-21] MEDS ORDERED: Naloxone HCl 0.4 mg/ml Vial IV PRN (16:26)
[2024-01-21 17:16] VITALS: BMI 32.5
[2024-01-21] MEDS: Piperacillin/Tazobactam 3.375 GM in Sodium Chloride 0.9% 100 ML IVPB SCH ×2 (17:37→21:56)
[2024-01-21] MEDS: fentaNYL 50 mcg/hour Patch TD SCH (21:41)
[2024-01-21] MEDS: Lactated Ringer's 1,000 ML IV SCH (21:43)
[2024-01-21] MEDS: Potassium Chloride 20 MEQ TAB PO SCH (21:56)
[2024-01-21] MEDS: Tamsulosin HCl 0.4 MG CAP PO SCH (21:56)
[2024-01-21] MEDS: Cyclobenzaprine 10 MG TAB PO PRN (21:56)
[2024-01-21] MEDS: Lactated Ringer's 500 ML IV SCH (21:58)
[2024-01-21] MEDS: Lorazepam 2 MG/ML VIAL SLOW IVP SCH (22:15)
[2024-01-21] MEDS ORDERED: Lorazepam 2 MG/ML VIAL IM PRN (22:21)
[2024-01-21] MEDS ORDERED: Lorazepam 1 MG TAB PO PRN (22:21)
[2024-01-21] MEDS ORDERED: Electrolyte Replacement Protocol FS SCH (22:30)
[2024-01-21] MEDS: Morphine 4 MG/ML VIAL SLOW IVP SCH (22:30)
[2024-01-21] MEDS: Haloperidol Lactate 5 MG/ML VIAL SLOW IVP SCH (22:35)
[2024-01-21] MEDS: Vancomycin (BATCH) 2 GM in Premix 1 BAG IVPB SCH (22:42)
[2024-01-21] MEDS: Morphine 4 MG/ML VIAL ONE (22:46)
[2024-01-21] MEDS: Lorazepam 2 MG/ML VIAL ONE (22:46)
[2024-01-21] MEDS: Haloperidol Lactate 5 MG/ML VIAL ONE (22:47)
[2024-01-22] MEDS: Dexmedetomidine In 0.9 % NaCl 100 ML IVPB SCH (00:01)
[2024-01-22] MEDS: Lactated Ringer's 1,000 ML IV SCH ×3 (00:58→08:58)
[2024-01-22] MEDS: Lorazepam 1 MG TAB PO SCH (00:59)
[2024-01-22] MEDS: Thiamine HCl 200 MG/2 ML VIAL SLOW IVP SCH (01:02)
[2024-01-22] MEDS: Methocarbamol 500 MG TAB PO PRN (01:02)
[2024-01-22] MEDS: Vancomycin 1.5 GM in Sodium Chloride 0.9% 250 ML 300 ML IVPB SCH (01:16)
[2024-01-22 03:52] LABS: Hematocrit 27.2 % (42.0-52.0); Hemoglobin 9.1 g/dL (14.0-18.0); Mean Corpuscular HGB CONC 33.5 g/dL (32.0-36.0); Mean Corpuscular Hemoglobin 28.4 pg (27.0-31.0); Mean Platelet Volume 9.7 fL (7.4-10.4); Platelet Count 331 10x3/uL (130-400); RBC Distribution Width 13.1 % (11.5-14.5)
[2024-01-22 04:44] LABS: Vancomycin, Random 40.6 ug/mL (See Comment)
[2024-01-22 04:59] LABS: Phosphorus 5.1 mg/dL (2.3-4.7)
[2024-01-22 05:02] LABS: Anion Gap 15 mmol/L (10-20); BUN (Urea Nitrogen) 16 mg/dL (8.4-25.7); Calc. Creatinine Clearance 91 mL/min (70-130); Calcium 8.8 mg/dL (7.8-10.44); Carbon Dioxide 20 mmol/L (22-29); Chloride 106 mmol/L (98-107); Estimated GFR 81; Glucose 105 mg/dL (70-105); Magnesium 1.6 mg/dL (1.6-2.6); Potassium 3.7 mmol/L (3.5-5.1); Sodium 137 mmol/L (136-145)
[2024-01-22 05:07] LABS: HIV (1/2) Antibody/Antigen NONREACTIVE (NonReactive); HIV 1/2 INDEX 0.05 S/CO (<1.00)
[2024-01-22] MEDS: Lactated Ringer's 500 ML IV SCH (05:49)
[2024-01-22] MEDS: Albumin 25% 25 GM (100 mL) BOT IVPB SCH (05:49)
[2024-01-22 06:56] LABS: Anisocytosis SLIGHT = 6-15 cells HPF (0-5); Band 26 % (5-11); Lymphocytes 3 % (21-51); Macrocytosis SLIGHT = 6-15 cells HPF (0-5); Monocytes 6 % (0-10); Neutrophil 64 % (42-75); Platelet Adequacy Comment Platelets Normal; Polychromasia SLIGHT = 2-3 cells HPF (0-2); Reactive Lymphocytes 1 % (0-10)
[2024-01-22] MEDS: Magnesium 2 GM/50 ML(in water) 2 GM in Premix 1 BAG IVPB SCH (07:10)
[2024-01-22] MEDS ORDERED: Vancomycin (BATCH) 1.25 GM in Premix 1 BAG IVPB SCH (09:00)
[2024-01-22] MEDS: Polyethylene Glycol 3350 17 GM Packet PO SCH (09:12)
[2024-01-22] MEDS: Amlodipine 5 MG TAB PO SCH (09:12)
[2024-01-22] MEDS: Enoxaparin 40 MG (0.4 mL) SYRINGE SC SCH (09:12)
[2024-01-22 11:15] LABS: Syphilis Antibody Nonreactive (Nonreactive); Syphilis Antibody Index 0.19 S/CO (<1.00 Non-Reactive)
[2024-01-22] MEDS: Multivit, Therapeutic 1 TAB PO SCH (12:20)
[2024-01-22] MEDS: Folic Acid 1 MG TAB PO SCH (12:20)
[2024-01-22] MEDS: Vancomycin HCl 750 MG in Sodium Chloride 0.9% 250 ML 250 ML IVPB SCH (12:24)
[2024-01-22] MEDS: Ketorolac Tromethamine 30 MG (1 mL) VIAL IVP PRN (12:24)
[2024-01-22] MEDS ORDERED: Morphine 2 MG/ML VIAL SLOW IVP PRN (14:02)
[2024-01-22 15:38] LABS: Amphetamine Not Detected (NotDetected); Barbiturates Screen Not Detected (NotDetected); Benzodiazepine Screen Detected (NotDetected); Cocaine Metabolite Screen Not Detected (NotDetected); Methadone Not Detected (NotDetected); Methamphetamine Not Detected (NotDetected); Opiate Screen Detected (NotDetected); Oxycodone Screen Not Detected (NotDetected); Phencyclidine (PCP) Not Detected (NotDetected); THC/Cannabinoid Screen Not Detected (NotDetected); Tricyclic Screen Detected (NotDetected)
[2024-01-22 15:41] LABS: Bacteria/HPF None Seen HPF (None Seen); Bilirubin Negative (Negative); Blood, Urine 1+ (Negative); CAUTI Indications for Culture Fever or rigors; Clarity Turbid (Clear); Glucose, Urine (Dipstick) Normal (Negative); Ketone, Urine 20 mg/dL (Negative); Leukocyte 500 Leu/uL (Negative); Nitrite Negative (Negative); Protein, Urine (Dipstick) 20 mg/dL (Neg-Trace); Specific Gravity, Urine 1.027 (1.002-1.036); Squamous Epithelial 0-3 HPF (0-3); Urobilinogen Normal mg/dL (Less than 2); WBC/HPF Greater than 50 HPF (0-3); pH, Urine 5.5 (5.0-9.0)
[2024-01-22 15:43] LABS: Urine Culture Reflex Yes Yes
[2024-01-22 17:38] LABS: Anion Gap 11 mmol/L (10-20); BUN (Urea Nitrogen) 18 mg/dL (8.4-25.7); Calc. Creatinine Clearance 113 mL/min (70-130); Calcium 8.8 mg/dL (7.8-10.44); Carbon Dioxide 22 mmol/L (22-29); Chloride 107 mmol/L (98-107); Estimated GFR 100; Glucose 84 mg/dL (70-105); Potassium 3.2 mmol/L (3.5-5.1); Sodium 137 mmol/L (136-145)
[2024-01-22] MEDS ORDERED: Lorazepam 1 MG TAB PO PRN (22:21)
[2024-01-22] MEDS: Potassium Chloride 20 MEQ TAB PO SCH (22:48)
[2024-01-23 03:55] LABS: #Basophils 0.03 10x3/uL (0.0-0.2); %Basophils 0.3 % (0.0-1.0); %Eosinophils 0.7 % (0.0-10.0); %Lymphocytes 11.3 % (21.0-51.0); %Monocytes 7.7 % (0.0-10.0); %Neutrophils 79.4 % (42.0-75.0); Hematocrit 25.9 % (42.0-52.0); Hemoglobin 8.5 g/dL (14.0-18.0); Mean Corpuscular HGB CONC 32.8 g/dL (32.0-36.0); Mean Corpuscular Hemoglobin 28.7 pg (27.0-31.0); Mean Corpuscular Volume 87.5 fL (78.0-98.0); Mean Platelet Volume 10.4 fL (7.4-10.4); Platelet Count 296 10x3/uL (130-400); RBC Distribution Width 13.2 % (11.5-14.5); Red Blood Cell (RBC) Count 2.96 mill/uL (4.70-6.10)
[2024-01-23 04:07] LABS: Vancomycin, Random 15.2 ug/mL (See Comment)
[2024-01-23 04:37] LABS: Anion Gap 14 mmol/L (10-20); BUN (Urea Nitrogen) 18 mg/dL (8.4-25.7); Calc. Creatinine Clearance 130 mL/min (70-130); Calcium 8.6 mg/dL (7.8-10.44); Carbon Dioxide 17 mmol/L (22-29); Chloride 109 mmol/L (98-107); Estimated GFR 104; Glucose 91 mg/dL (70-105); Potassium 3.3 mmol/L (3.5-5.1); Sodium 137 mmol/L (136-145)
[2024-01-23] MEDS: HYDROcodone/Acetaminophen 5/325 mg Tablet PO PRN ×2 (05:22→18:56)
[2024-01-23] MEDS: Magnesium 2 GM/50 ML(in water) 2 GM in Premix 1 BAG IVPB SCH (10:19)
[2024-01-23] MEDS: Vancomycin HCl 750 MG in Sodium Chloride 0.9% 250 ML 250 ML IVPB SCH (10:19)
[2024-01-23] MEDS: Famotidine 20 MG TAB PO SCH (10:20)
[2024-01-23] MEDS: Loperamide HCl 2 MG CAP PO SCH (10:22)
[2024-01-23] MEDS: Potassium Chloride 20 MEQ TAB PO SCH (10:24)
[2024-01-23 11:25] LABS: Phosphorus 2.8 mg/dL (2.3-4.7)
[2024-01-23] MEDS ORDERED: Ondansetron PF 4 MG/2 ML Vial ONE (11:50)
[2024-01-23] MEDS ORDERED: GLYCOPYRROLATE/PF 0.2 MG/ML VIAL ONE (11:50)
[2024-01-23] MEDS ORDERED: Dexamethasone 4 mg/ml Vial ONE (11:50)
[2024-01-23] MEDS ORDERED: Midazolam HCl 2 mg/2 ml Vial ONE (11:51)
[2024-01-23] MEDS ORDERED: fentaNYL 50 mcg/mL 1 mL Vial ONE ×2 (11:51→13:36)
[2024-01-23] MEDS ORDERED: PROPOFOL 20 ML ONE (11:51)
[2024-01-23] MEDS ORDERED: Lidocaine 1% PF 5 ML VIAL ONE (11:52)
[2024-01-23] MEDS ORDERED: Potassium Chloride 20 MEQ in Premix 2 BAG IVPB SCH (13:30)
[2024-01-23] MEDS: Potassium Chloride 20 MEQ in Premix 1 BAG IVPB SCH (14:46)
[2024-01-23 16:39] LABS: ALT (SGPT) 62 U/L (8-55); AST (SGOT) 86 U/L (5-34); Albumin 2.6 g/dL (3.5-5.0); Alkaline Phosphatase 76 U/L (40-110); Anion Gap 15 mmol/L (10-20); BUN (Urea Nitrogen) 15 mg/dL (8.4-25.7); Bilirubin, Total 0.5 mg/dL (0.2-1.2); Calc. Creatinine Clearance 143 mL/min (70-130); Calcium 8.6 mg/dL (7.8-10.44); Carbon Dioxide 17 mmol/L (22-29); Chloride 109 mmol/L (98-107); Estimated GFR 105; Glucose 99 mg/dL (70-105); Potassium 5.1 mmol/L (3.5-5.1); Protein, Total 6.6 g/dL (6.0-8.3); Sodium 136 mmol/L (136-145)
[2024-01-23] MEDS ORDERED: Lorazepam 1 MG TAB PO PRN (22:21)
[2024-01-23] MEDS ORDERED: Lorazepam 0.5 MG TAB PO SCH (23:00)
[2024-01-24] MEDS: traMADol HCl 50 MG TAB PO PRN (04:36)
[2024-01-24 05:24] LABS: #Basophils 0.03 10x3/uL (0.0-0.2); #Eosinophils Less than 0.03 10x3/uL (0.0-0.7); %Basophils 0.2 % (0.0-1.0); %Lymphocytes 8.2 % (21.0-51.0); %Monocytes 5.7 % (0.0-10.0); %Neutrophils 84.3 % (42.0-75.0); Hematocrit 27.2 % (42.0-52.0); Hemoglobin 8.9 g/dL (14.0-18.0); Mean Corpuscular HGB CONC 32.7 g/dL (32.0-36.0); Mean Corpuscular Hemoglobin 28.9 pg (27.0-31.0); Mean Corpuscular Volume 88.3 fL (78.0-98.0); Mean Platelet Volume 10.2 fL (7.4-10.4); Platelet Count 365 10x3/uL (130-400); RBC Distribution Width 13.2 % (11.5-14.5); Red Blood Cell (RBC) Count 3.08 mill/uL (4.70-6.10)
[2024-01-24 05:35] LABS: Anion Gap 13 mmol/L (10-20); BUN (Urea Nitrogen) 13 mg/dL (8.4-25.7); Calc. Creatinine Clearance 137 mL/min (70-130); Calcium 8.7 mg/dL (7.8-10.44); Carbon Dioxide 22 mmol/L (22-29); Chloride 111 mmol/L (98-107); Estimated GFR 104; Glucose 121 mg/dL (70-105); Potassium 4.1 mmol/L (3.5-5.1); Sodium 142 mmol/L (136-145)
[2024-01-24 05:48] LABS: Campy jejuni + coli by PCR Negative (Negative); STEC Shiga Toxin 1+2 Negative (Negative); Salmonella spp. by PCR Negative (Negative); Shigella spp + EIEC by PCR Negative (Negative)
[2024-01-24] MEDS ORDERED: Iopamidol 370 76% 100 ML VIAL ONE (14:25)
[2024-01-24] MEDS ORDERED: GASTROGRAFIN 30 ML BOT ONE (14:25)
[2024-01-24] MEDS: QUEtiapine 25 MG TAB PO SCH (21:05)
[2024-01-24] MEDS ORDERED: Lorazepam 0.5 MG TAB PO PRN (22:21)
[2024-01-24] MEDS: Thiamine 100 MG TAB PO SCH (22:28)
[2024-01-25] MEDS: Lactated Ringer's 1,000 ML IV SCH (00:40)
[2024-01-25] MEDS: Haloperidol Lactate 5 MG/ML VIAL IM SCH (04:31)
[2024-01-25 06:23] LABS: Hematocrit 28.2 % (42.0-52.0); Hemoglobin 9.1 g/dL (14.0-18.0); Mean Corpuscular HGB CONC 32.3 g/dL (32.0-36.0); Mean Corpuscular Hemoglobin 28.6 pg (27.0-31.0); Mean Corpuscular Volume 88.7 fL (78.0-98.0); Mean Platelet Volume 10.1 fL (7.4-10.4); Platelet Count 360 10x3/uL (130-400); RBC Distribution Width 12.8 % (11.5-14.5); Red Blood Cell (RBC) Count 3.18 mill/uL (4.70-6.10)
[2024-01-25 06:38] LABS: Anion Gap 11 mmol/L (10-20); BUN (Urea Nitrogen) 11 mg/dL (8.4-25.7); Calc. Creatinine Clearance 133 mL/min (70-130); Calcium 8.8 mg/dL (7.8-10.44); Carbon Dioxide 23 mmol/L (22-29); Chloride 110 mmol/L (98-107); Estimated GFR 102; Glucose 82 mg/dL (70-105); Potassium 3.7 mmol/L (3.5-5.1); Sodium 140 mmol/L (136-145)
[2024-01-25 06:56] LABS: Eosinophils 1 % (0-10); Lymphocytes 14 % (21-51); Metamyelocyte 2 % (0-0); Microcytosis SLIGHT = 6-15 cells HPF (0-5); Monocytes 2 % (0-10); Myelocyte 3 % (0-0); Neutrophil 74 % (42-75); Platelet Adequacy Comment Platelets Normal; Polychromasia SLIGHT = 2-3 cells HPF (0-2); Promyelocytes 1 % (0-0); Toxic Granulation SLIGHT
[2024-01-25] MEDS: Enoxaparin 40 MG (0.4 mL) SYRINGE SC SCH (08:50)
[2024-01-25 09:49] LABS: ALT (SGPT) 66 U/L (8-55); AST (SGOT) 50 U/L (5-34); Albumin 2.6 g/dL (3.5-5.0); Alkaline Phosphatase 69 U/L (40-110); Bilirubin, Direct 0.2 mg/dL (0.1-0.3); Bilirubin, Total 0.5 mg/dL (0.2-1.2); Protein, Total 5.8 g/dL (6.0-8.3)
[2024-01-25] MEDS ORDERED: Iopamidol 370 76% 100 ML VIAL ONE (09:54)
[2024-01-25] MEDS: QUEtiapine 25 MG TAB PO SCH ×2 (10:23→21:23)
[2024-01-25] MEDS: clonazePAM 1 MG TAB PO SCH (21:24)
[2024-01-25] MEDS: traZODone HCl 50 MG TAB PO SCH (21:24)
[2024-01-26 06:20] LABS: Hematocrit 29.3 % (42.0-52.0); Hemoglobin 9.6 g/dL (14.0-18.0); Mean Corpuscular HGB CONC 32.8 g/dL (32.0-36.0); Mean Corpuscular Hemoglobin 28.8 pg (27.0-31.0); Mean Platelet Volume 10.1 fL (7.4-10.4); Platelet Count 385 10x3/uL (130-400); RBC Distribution Width 12.7 % (11.5-14.5); Red Blood Cell (RBC) Count 3.33 mill/uL (4.70-6.10)
[2024-01-26 06:24] LABS: INR-International Normal Ratio 1.3; Prothrombin Time 15.8 sec (12.0-14.7)
[2024-01-26 06:25] LABS: PTT 37.9 sec (22.9-36.1)
[2024-01-26 06:32] LABS: Anion Gap 13 mmol/L (10-20); BUN (Urea Nitrogen) 8 mg/dL (8.4-25.7); Calc. Creatinine Clearance 124 mL/min (70-130); Calcium 9.1 mg/dL (7.8-10.44); Carbon Dioxide 25 mmol/L (22-29); Chloride 106 mmol/L (98-107); Estimated GFR 100; Glucose 104 mg/dL (70-105); Magnesium 2.3 mg/dL (1.6-2.6); Sodium 140 mmol/L (136-145)
[2024-01-26 06:38] LABS: Phosphorus 3.9 mg/dL (2.3-4.7)
[2024-01-26 07:06] LABS: Band 7 % (5-11); Eosinophils 2 % (0-10); Lymphocytes 11 % (21-51); Metamyelocyte 1 % (0-0); Monocytes 4 % (0-10); Neutrophil 76 % (42-75); Platelet Adequacy Comment Platelets Normal; RBC Morphology Within Normal Limits
[2024-01-26] MEDS ORDERED: Enoxaparin 40 MG (0.4 mL) SYRINGE SC SCH (09:00)
[2024-01-26] MEDS ORDERED: Lidocaine 4% Patch TD SCH (12:15)
[2024-01-26] MEDS: HYDROcodone/Acetaminophen 10/325 mg Tablet PO SCH ×2 (12:17→12:49)
[2024-01-26] MEDS: Lidocaine 4% Patch TD SCH ×2 (12:51→13:07)
[2024-01-26] MEDS: Transdermal Patch Removal TOP SCH (20:40)
[2024-01-27] MEDS: Lidocaine 4% Patch TD SCH (08:21)
[2024-01-27] MEDS ORDERED: Lidocaine 1% PF 5 ML VIAL ONE (09:00)
[2024-01-27] MEDS ORDERED: Lidocaine 4% Patch TD SCH (09:00)
[2024-01-27] MEDS ORDERED: Sodium Bicarbonate 0.5 MEQ/ML SDV 10 ML ONE (09:08)
[2024-01-27 10:54] LABS: #Basophils 0.09 10x3/uL (0.0-0.2); %Basophils 0.9 % (0.0-1.0); %Eosinophils 3.3 % (0.0-10.0); %Lymphocytes 15.5 % (21.0-51.0); %Monocytes 6.9 % (0.0-10.0); %Neutrophils 68.6 % (42.0-75.0); Hematocrit 32.6 % (42.0-52.0); Hemoglobin 10.6 g/dL (14.0-18.0); Mean Corpuscular HGB CONC 32.5 g/dL (32.0-36.0); Mean Corpuscular Hemoglobin 28.6 pg (27.0-31.0); Mean Corpuscular Volume 88.1 fL (78.0-98.0); Platelet Count 395 10x3/uL (130-400)
[2024-01-27 11:08] LABS: Anion Gap 13 mmol/L (10-20); BUN (Urea Nitrogen) 7 mg/dL (8.4-25.7); Calc. Creatinine Clearance 119 mL/min (70-130); Calcium 9.2 mg/dL (7.8-10.44); Carbon Dioxide 24 mmol/L (22-29); Chloride 107 mmol/L (98-107); Estimated GFR 99; Glucose 116 mg/dL (70-105); Potassium 3.5 mmol/L (3.5-5.1); Sodium 140 mmol/L (136-145)
[2024-01-27] MEDS: Ibuprofen 800 MG TAB PO PRN (12:39)
[2024-01-27] MEDS: Potassium Chloride 20 MEQ TAB PO SCH (13:53)
[2024-01-28 04:39] LABS: #Basophils 0.07 10x3/uL (0.0-0.2); %Basophils 0.7 % (0.0-1.0); %Eosinophils 4.1 % (0.0-10.0); %Lymphocytes 17.6 % (21.0-51.0); %Neutrophils 66.8 % (42.0-75.0); Hematocrit 32.7 % (42.0-52.0); Hemoglobin 10.5 g/dL (14.0-18.0); Mean Corpuscular HGB CONC 32.1 g/dL (32.0-36.0); Mean Corpuscular Hemoglobin 28.7 pg (27.0-31.0); Mean Corpuscular Volume 89.3 fL (78.0-98.0); Mean Platelet Volume 10.1 fL (7.4-10.4); Platelet Count 389 10x3/uL (130-400); RBC Distribution Width 13.2 % (11.5-14.5); Red Blood Cell (RBC) Count 3.66 mill/uL (4.70-6.10)
[2024-01-28 04:45] LABS: Anion Gap 11 mmol/L (10-20); BUN (Urea Nitrogen) 8 mg/dL (8.4-25.7); Calc. Creatinine Clearance 112 mL/min (70-130); Calcium 9.1 mg/dL (7.8-10.44); Carbon Dioxide 25 mmol/L (22-29); Chloride 108 mmol/L (98-107); Estimated GFR 92; Glucose 122 mg/dL (70-105); Potassium 3.8 mmol/L (3.5-5.1); Sodium 140 mmol/L (136-145)
[2024-01-28] MEDS: Magnesium Oxide 400 MG TAB PO SCH ×2 (12:03→22:02)
[2024-01-28] MEDS: Loperamide HCl 2 MG CAP PO PRN (15:19)
[2024-01-29 06:54] LABS: #Basophils 0.05 10x3/uL (0.0-0.2); %Basophils 0.5 % (0.0-1.0); %Eosinophils 2.7 % (0.0-10.0); %Lymphocytes 17.1 % (21.0-51.0); %Monocytes 6.4 % (0.0-10.0); Hematocrit 33.7 % (42.0-52.0); Mean Corpuscular HGB CONC 32.6 g/dL (32.0-36.0); Mean Corpuscular Hemoglobin 28.8 pg (27.0-31.0); Mean Corpuscular Volume 88.2 fL (78.0-98.0); Mean Platelet Volume 9.7 fL (7.4-10.4); Platelet Count 360 10x3/uL (130-400); RBC Distribution Width 13.5 % (11.5-14.5); Red Blood Cell (RBC) Count 3.82 mill/uL (4.70-6.10)
[2024-01-29 07:07] LABS: Anion Gap 9 mmol/L (10-20); BUN (Urea Nitrogen) 10 mg/dL (8.4-25.7); Calc. Creatinine Clearance 125 mL/min (70-130); Calcium 9.3 mg/dL (7.8-10.44); Carbon Dioxide 26 mmol/L (22-29); Chloride 108 mmol/L (98-107); Estimated GFR 100; Glucose 105 mg/dL (70-105); Sodium 139 mmol/L (136-145)
[2024-01-29] MEDS: Gabapentin 300 MG CAP PO SCH ×2 (13:31→20:42)
[2024-01-29] MEDS ORDERED: PHENYLEPHRINE-NS 100 MCG/ML 10 ML SYRINGE ONE (16:00)
[2024-01-29] MEDS ORDERED: PROPOFOL 200 MG/20 ML VIAL ONE (16:00)
[2024-01-29] MEDS ORDERED: Lidocaine 1% PF 5 ML VIAL ONE (16:00)
[2024-01-29] MEDS ORDERED: Sevoflurane 250 ML INH ANEST BOTTLE ONE (16:07)
[2024-01-29] MEDS ORDERED: fentaNYL 50 mcg/mL 1 mL Vial ONE (17:14)
[2024-01-30 05:08] LABS: #Basophils 0.05 10x3/uL (0.0-0.2); %Basophils 0.5 % (0.0-1.0); %Eosinophils 1.6 % (0.0-10.0); %Monocytes 7.1 % (0.0-10.0); %Neutrophils 71.7 % (42.0-75.0); Hematocrit 35.6 % (42.0-52.0); Hemoglobin 11.8 g/dL (14.0-18.0); Mean Corpuscular HGB CONC 33.1 g/dL (32.0-36.0); Mean Corpuscular Hemoglobin 28.6 pg (27.0-31.0); Mean Corpuscular Volume 86.4 fL (78.0-98.0); Mean Platelet Volume 10.1 fL (7.4-10.4); Platelet Count 381 10x3/uL (130-400); RBC Distribution Width 13.7 % (11.5-14.5); Red Blood Cell (RBC) Count 4.12 mill/uL (4.70-6.10)
[2024-01-30 05:44] LABS: Anion Gap 13 mmol/L (10-20); BUN (Urea Nitrogen) 10 mg/dL (8.4-25.7); Calc. Creatinine Clearance 108 mL/min (70-130); Calcium 9.4 mg/dL (7.8-10.44); Carbon Dioxide 22 mmol/L (22-29); Chloride 106 mmol/L (98-107); Estimated GFR 89; Glucose 101 mg/dL (70-105); Potassium 3.8 mmol/L (3.5-5.1); Sodium 137 mmol/L (136-145)
[2024-01-30] MEDS: HYDROcodone/Acetaminophen 10/325 mg Tablet PO SCH (13:22)
[2024-01-30] MEDS: Gabapentin 300 MG CAP PO SCH (14:34)
[2024-01-31] MEDS: cefTRIAXone\\ROCEPHIN 2 GM in Sodium Chloride 0.9% 100 ML IVPB SCH (05:44)
[2024-01-31 05:59] LABS: #Basophils 0.06 10x3/uL (0.0-0.2); %Basophils 0.7 % (0.0-1.0); %Lymphocytes 22.5 % (21.0-51.0); %Monocytes 9.2 % (0.0-10.0); %Neutrophils 64.9 % (42.0-75.0); Hematocrit 35.4 % (42.0-52.0); Hemoglobin 11.6 g/dL (14.0-18.0); Mean Corpuscular HGB CONC 32.8 g/dL (32.0-36.0); Mean Corpuscular Hemoglobin 28.4 pg (27.0-31.0); Mean Corpuscular Volume 86.8 fL (78.0-98.0); Platelet Count 344 10x3/uL (130-400); RBC Distribution Width 13.8 % (11.5-14.5); Red Blood Cell (RBC) Count 4.08 mill/uL (4.70-6.10)
[2024-01-31 06:19] LABS: Anion Gap 12 mmol/L (10-20); BUN (Urea Nitrogen) 12 mg/dL (8.4-25.7); Calc. Creatinine Clearance 108 mL/min (70-130); Calcium 9.5 mg/dL (7.8-10.44); Carbon Dioxide 25 mmol/L (22-29); Chloride 106 mmol/L (98-107); Estimated GFR 89; Glucose 106 mg/dL (70-105); Sodium 139 mmol/L (136-145)
[2024-01-31] MEDS ORDERED: Acetaminophen 325 MG TAB PO SCH (08:00)
[2024-01-31] MEDS: Ibuprofen 800 MG TAB PO SCH (08:42)
[2024-01-31] MEDS: Acetaminophen 325 MG TAB PO SCH (08:43)
[2024-01-31] MEDS: Cyclobenzaprine 10 MG TAB PO PRN (08:54)
[2024-01-31] MEDS ORDERED: HYDROcodone/Acetaminophen 7.5/325 mg Tablet PO PRN (12:00)
[2024-01-31] MEDS: Methocarbamol 500 MG TAB PO SCH (14:19)
[2024-01-31] MEDS: Cyclobenzaprine 10 MG TAB PO SCH (20:26)
[2024-02-01] MEDS: Cyclobenzaprine 10 MG TAB PO SCH (02:18)
[2024-02-01 06:37] LABS: #Basophils 0.06 10x3/uL (0.0-0.2); %Basophils 0.5 % (0.0-1.0); %Eosinophils 1.4 % (0.0-10.0); %Lymphocytes 13.6 % (21.0-51.0); %Monocytes 5.6 % (0.0-10.0); %Neutrophils 78.4 % (42.0-75.0); Hematocrit 35.2 % (42.0-52.0); Hemoglobin 11.4 g/dL (14.0-18.0); Mean Corpuscular HGB CONC 32.4 g/dL (32.0-36.0); Mean Corpuscular Hemoglobin 28.6 pg (27.0-31.0); Mean Corpuscular Volume 88.4 fL (78.0-98.0); Mean Platelet Volume 9.6 fL (7.4-10.4); Platelet Count 332 10x3/uL (130-400); RBC Distribution Width 14.1 % (11.5-14.5); Red Blood Cell (RBC) Count 3.98 mill/uL (4.70-6.10)
[2024-02-01 07:15] LABS: Anion Gap 10 mmol/L (10-20); BUN (Urea Nitrogen) 13 mg/dL (8.4-25.7); Calc. Creatinine Clearance 120 mL/min (70-130); Calcium 9.4 mg/dL (7.8-10.44); Carbon Dioxide 25 mmol/L (22-29); Chloride 105 mmol/L (98-107); Estimated GFR 99; Glucose 113 mg/dL (70-105); Potassium 3.8 mmol/L (3.5-5.1); Sodium 136 mmol/L (136-145)
[2024-02-01] MEDS ORDERED: Methocarbamol 500 MG TAB PO SCH (08:00)
[2024-02-01] MEDS: Methocarbamol 500 MG TAB PO SCH ×2 (08:16→13:30)
[2024-02-01] MEDS: QUEtiapine 25 MG TAB PO SCH (21:09)
[2024-02-02 07:40] LABS: #Basophils 0.06 10x3/uL (0.0-0.2); %Basophils 0.7 % (0.0-1.0); %Eosinophils 2.2 % (0.0-10.0); %Lymphocytes 19.5 % (21.0-51.0); %Monocytes 8.6 % (0.0-10.0); %Neutrophils 68.4 % (42.0-75.0); Hematocrit 34.1 % (42.0-52.0); Mean Corpuscular HGB CONC 32.3 g/dL (32.0-36.0); Mean Corpuscular Hemoglobin 27.9 pg (27.0-31.0); Mean Corpuscular Volume 86.5 fL (78.0-98.0); Mean Platelet Volume 10.1 fL (7.4-10.4); Platelet Count 309 10x3/uL (130-400); RBC Distribution Width 14.1 % (11.5-14.5); Red Blood Cell (RBC) Count 3.94 mill/uL (4.70-6.10)
[2024-02-02 07:55] LABS: Anion Gap 16 mmol/L (10-20); BUN (Urea Nitrogen) 11 mg/dL (8.4-25.7); Calc. Creatinine Clearance 110 mL/min (70-130); Calcium 9.3 mg/dL (7.8-10.44); Carbon Dioxide 24 mmol/L (22-29); Chloride 104 mmol/L (98-107); Estimated GFR 91; Glucose 118 mg/dL (70-105); Potassium 3.6 mmol/L (3.5-5.1); Sodium 140 mmol/L (136-145)
[2024-02-02] MEDS: Lactated Ringer's 500 ML IV SCH (16:32)
[2024-02-03 06:18] LABS: #Basophils 0.08 10x3/uL (0.0-0.2); %Basophils 0.7 % (0.0-1.0); %Eosinophils 1.1 % (0.0-10.0); %Lymphocytes 15.9 % (21.0-51.0); %Monocytes 6.1 % (0.0-10.0); %Neutrophils 75.8 % (42.0-75.0); Hematocrit 33.9 % (42.0-52.0); Hemoglobin 10.9 g/dL (14.0-18.0); Mean Corpuscular HGB CONC 32.2 g/dL (32.0-36.0); Mean Corpuscular Hemoglobin 28.5 pg (27.0-31.0); Mean Corpuscular Volume 88.5 fL (78.0-98.0); Mean Platelet Volume 10.1 fL (7.4-10.4); Platelet Count 308 10x3/uL (130-400); RBC Distribution Width 14.2 % (11.5-14.5); Red Blood Cell (RBC) Count 3.83 mill/uL (4.70-6.10)
[2024-02-03 07:20] LABS: Anion Gap 12 mmol/L (10-20); BUN (Urea Nitrogen) 10 mg/dL (8.4-25.7); Calc. Creatinine Clearance 109 mL/min (70-130); Calcium 9.5 mg/dL (7.8-10.44); Carbon Dioxide 23 mmol/L (22-29); Chloride 105 mmol/L (98-107); Estimated GFR 90; Glucose 114 mg/dL (70-105); Potassium 4.3 mmol/L (3.5-5.1); Sodium 136 mmol/L (136-145)
[2024-02-03] MEDS ORDERED: Metamucil PACK PO SCH (09:00)
[2024-02-03] MEDS: Lactated Ringer's 500 ML IV SCH (10:21)
[2024-02-03] MEDS: Vancomycin HCl 125 MG Capsule PO SCH ×2 (14:58→18:49)
[2024-02-04 05:49] LABS: #Basophils 0.06 10x3/uL (0.0-0.2); %Basophils 0.7 % (0.0-1.0); %Eosinophils 2.4 % (0.0-10.0); %Lymphocytes 20.3 % (21.0-51.0); %Monocytes 9.4 % (0.0-10.0); %Neutrophils 66.7 % (42.0-75.0); Hematocrit 30.8 % (42.0-52.0); Hemoglobin 9.9 g/dL (14.0-18.0); Mean Corpuscular HGB CONC 32.1 g/dL (32.0-36.0); Mean Corpuscular Hemoglobin 28.7 pg (27.0-31.0); Mean Corpuscular Volume 89.3 fL (78.0-98.0); Mean Platelet Volume 10.1 fL (7.4-10.4); Platelet Count 272 10x3/uL (130-400); RBC Distribution Width 14.1 % (11.5-14.5); Red Blood Cell (RBC) Count 3.45 mill/uL (4.70-6.10)
[2024-02-04 06:18] LABS: Anion Gap 11 mmol/L (10-20); BUN (Urea Nitrogen) 10 mg/dL (8.4-25.7); Calc. Creatinine Clearance 131 mL/min (70-130); Calcium 9.4 mg/dL (7.8-10.44); Carbon Dioxide 26 mmol/L (22-29); Chloride 107 mmol/L (98-107); Estimated GFR 102; Glucose 113 mg/dL (70-105); Sodium 140 mmol/L (136-145)
[2024-02-04] MEDS: Methylcellulose 500 MG TAB PO SCH (08:15)
[2024-02-04] MEDS: Saccharomyces boulardii 250 MG CAP PO SCH (08:15)
[2024-02-04] MEDS: Lactated Ringer's 1,000 ML IV SCH (11:20)
[2024-02-04 14:50] VITALS: BMI 35.6
[2024-02-05 06:07] LABS: #Basophils 0.08 10x3/uL (0.0-0.2); %Basophils 0.8 % (0.0-1.0); %Eosinophils 2.9 % (0.0-10.0); %Lymphocytes 16.2 % (21.0-51.0); %Monocytes 7.8 % (0.0-10.0); %Neutrophils 71.9 % (42.0-75.0); Hemoglobin 9.6 g/dL (14.0-18.0); Mean Corpuscular Hemoglobin 28.7 pg (27.0-31.0); Mean Corpuscular Volume 89.6 fL (78.0-98.0); Mean Platelet Volume 9.9 fL (7.4-10.4); Platelet Count 279 10x3/uL (130-400); RBC Distribution Width 14.2 % (11.5-14.5); Red Blood Cell (RBC) Count 3.35 mill/uL (4.70-6.10)
[2024-02-05 06:35] LABS: Anion Gap 10 mmol/L (10-20); BUN (Urea Nitrogen) 9 mg/dL (8.4-25.7); Calc. Creatinine Clearance 128 mL/min (70-130); Calcium 8.9 mg/dL (7.8-10.44); Carbon Dioxide 28 mmol/L (22-29); Chloride 107 mmol/L (98-107); Estimated GFR 101; Glucose 114 mg/dL (70-105); Potassium 3.8 mmol/L (3.5-5.1); Sodium 141 mmol/L (136-145)
[2024-02-05 08:04] VITALS: BP 118/72; TEMP 97.9
[2024-02-05] MEDS: Lactated Ringer's 500 ML IV SCH (10:34)
[2024-02-05] MEDS: Potassium Chloride 20 MEQ TAB PO SCH (10:34)
[2024-02-17] MEDS ORDERED: Vancomycin HCl 125 MG Capsule PO SCH (21:00)
[2024-02-25] MEDS ORDERED: Vancomycin HCl 125 MG Capsule PO SCH (09:00)
[2024-03-04] MEDS ORDERED: Vancomycin HCl 125 MG Capsule PO SCH (09:00)
== END 2024-02-05 13:18 | DRG 871 ==
LOC: ERS 12:59 → SURG B 14:04 → IMCU/EMU 23:35 → T4-A 01-24 16:09
PROVIDERS: ADMIT Family Medicine; ATTEND Family Medicine
PROC: 0TJB8ZZ Inspection of Bladder, Via Natural or Artificial Opening Endoscopic (ICD-10-PCS; 2024-01-23)
PROC: 02HV33Z Insertion of Infusion Device into Superior Vena Cava, Percutaneous Approach (ICD-10-PCS; principal; 2024-01-27)
PROC: B5181ZA Fluoroscopy of Superior Vena Cava using Low Osmolar Contrast, Guidance (ICD-10-PCS; 2024-01-27)
DX: A41.51 Sepsis due to Escherichia coli [E. coli] (principal); G93.41 Metabolic encephalopathy; K68.12 Psoas muscle abscess; M46.26 Osteomyelitis of vertebra, lumbar region; N32.1 Vesicointestinal fistula; N39.0 Urinary tract infection, site not specified; F10.231 Alcohol dependence with withdrawal delirium; I50.22 Chronic systolic (congestive) heart failure; K57.20 Diverticulitis of large intestine with perforation and abscess without bleeding; M70.61 Trochanteric bursitis, right hip; R19.7 Diarrhea, unspecified; G47.00 Insomnia, unspecified; F29 Unspecified psychosis not due to a substance or known physiological condition; I11.0 Hypertensive heart disease with heart failure; M19.90 Unspecified osteoarthritis, unspecified site; N40.0 Benign prostatic hyperplasia without lower urinary tract symptoms; E78.5 Hyperlipidemia, unspecified; N45.1 Epididymitis; M46.46 Discitis, unspecified, lumbar region; E66.9 Obesity, unspecified; Z90.49 Acquired absence of other specified parts of digestive tract; Z87.891 Personal history of nicotine dependence; Z79.899 Other long term (current) drug therapy; Z68.35 Body mass index [BMI] 35.0-35.9, adult
CPT/HCPCS: 36415; 36416; 36569; 70470; 71045; 72131; 72158; 74177; 76937; 77001; 80048; 80053; 80076; 80202; 80306; 81001; 82140; 82306; 82330; 82533; 83605; 83630; 83735; 83970; 84100; 85025; 85610; 85730; 86141; 86780; 87040; 87077; 87086; 87149; 87186; 87324; 87389; 87449; 87505; 93005; 93010; 93306; C1751; J0696; J1100; J1630; J1650; J1885; J2060; J2250; J2272; J2405; J2543; J2704; J3010; J3370; J3411; J3475; J3480; J3490; J7050; J7120; P9047; Q9963; Q9967